=== PATIENT | male | born 1970 | race Caucasian/White ===

== ENCOUNTER 2016-11-12 12:37 | Day surgery (SDC) | payer MEDICARE, OTHER ==
[2016-11-12] VITALS (10 sets, daily range): BP systolic 104–147; BP diastolic 61–92; PULSE 86–104; RESP 14–17; O2SAT 94–100
[~2016-11-12] VITALS: Ht 177.8 cm; Wt 128.0 kg
[~2016-11-12 12:37] MED LIST: COLC0.6T55 PO; CeFAZolin Inj 3 GM in IV Premix 1 EACH IV SCH; LISI10TA PO; METF-495 PO
[2016-11-12] MEDS ORDERED: Lidocaine PF 1% 30 mL Inj ONE (12:38)
[2016-11-12] MEDS ORDERED: Dexamethasone 4 mg/mL Inj ONE (12:38)
[2016-11-12] MEDS ORDERED: Propofol 10,000 mCg/mL 20 mL Inj ONE (12:38)
[2016-11-12] MEDS ORDERED: Phenylephrine/NS 100 mCg/mL 10 mL Syringe IVPUSH ONE (12:38)
[2016-11-12] MEDS ORDERED: Ondansetron 2 mg/mL 2 mL Inj ONE (12:38)
[2016-11-12] MEDS ORDERED: fentaNYL-PF 50 mCg/mL 2 mL Inj ONE (12:38)
[2016-11-12] MEDS: Lactated Ringer's 1,000 ML IV SCH ×2 (12:42→14:23)
--- NOTE | 2016-11-12 14:03 | PCM.HPANE ---
Patient Data Date of Service: Nov 12, 2016 Surgeon Admitting Provider: Attending Provider:Mckay Melgoza MD Primary Care Physician:Nannette Jean Baptiste PA-C Other Provider:Estevan Mccord Anesthesia Reason for Visit Chronic Pilonidal Disease Ht/WT & BMI Height (Feet): 5 Height (Inches): 10 Weight (Kilograms): 128 Body Mass Index 40.00 Allergies Coded Allergies: Bumble Bee (Verified Allergy, Unknown, 11/12/16) Past Anesthesia History Anesthesia History: Denies:: Anesthesia Reactions Diabetes History Hx Diabetes?: Yes Type of Diabetes: Type II Glycemic Control: Oral Medication Current Bedside Blood Glucose: 126 Medications Hypertension Medication: Yes Home Meds Incl Beta Jeanette: No Reported Medications Metformin ER 500 Mg [id number] Mg PO DAILYWD Ref 0 11/10/16 Lisinopril 10 Mg [id number] Mg PO DAILY 30 Days Ref 0 11/10/16 Colchicine 0.6 Mg Tablet0.6 Mg PO BID 11/10/16 Discontinued Reported Medications Hydrocodone/Acetaminophen (Vicodin 5-300 mg Tablet)1 Each Tablet1 Each PO Q4 PRN For Pain Ref 0 12/26/13 [Tiamcinolone 0.1%] No Conflict Check Top Bid Prn To Hands And Feet 12/26/13 History History of ENT Problems?: No Hx of Heart Problems?: Yes Cardiovascular History: Positive for:: Hypertension Other History/Comments States he had a heart attack on EKG, stress test negative per patient Hx of Respiratory Problem?: No Respiratory History: Denies:: Asthma COPD Emphysema Oxygen Administration Use of C-PAP Machine Hx Neurologic Problems?: No Neurological History: Denies:: CVA Multiple Sclerosis Parkinson's Disease Seizures Hx of GI Problems?: Yes Gastrointestinal History: Denies:: Cirrhosis Diverticulitis Gastroesphageal Reflux Heartburn Hepatitis Rectal Bleeding (recurrent pilonidal cyst current admission problem) Hx of Problems?: No Genitourinary History: Denies:: HX of Hemodialysis Kidney Stones Urinary Tract Infection Male Hx: Denies:: Prostate Problems Skin History: Positive for:: History Skin Disorders? (pilonidal cyst current problem) Hx Musculoskeletal Problems?: Yes Musculoskeletal History: Positive for:: Musculoskeletal Trauma (past hx ganglion cyst thumb) Rheumatoid Arthritis (on no meds at this time) Hx of Psycho/Social Problems?: No Hx Surgeries?: Yes (pilonidal cyst, testicular torsion, ganglion cyst thumb) Hx Any Other Health Problems?: Yes Other History: Denies:: Cancer Thyroid Disease Hx Diabetes: YesBedside Blood Glucose: 126 Hx Alcohol Use: NoHx Substance Use: NoHave You Smoked inLast 12 mo: No Stop/Bang S-Snoring: Do You Snore Loudly: Yes T-Tired: feel tired, fatigued: Yes O-Obsered: Observed not breath: No P-Blood Pressure: treated: Yes B- Body Mass Index > 35 kg/m2: Yes A- Age over 50: Yes N- Neck Large Circumference: No G- Gender Male: Yes JT Total Score: 6 JT Risk Assessment: High Risk, =/>3 Yes JT Category 4 OutPt Procedure: Yes Risk Assessment Category Category 1A: Patient has history of documented sleep apnea, and HAS NOT received any narcotic, sedative or anesthesia administration during this stay. Category 1B: Patient has history of documented sleep apnea, and HAS received any narcotic , sedative or anesthesia administration during this stay Category 2: Patient has SUSPECTED Obstructive Sleep Apnea, and HAS received any narcotic , sedative or anesthesia administration during this stay. Category 3: Patient has SUSPECTED Obstructive Sleep Apnea and HAS NOT received narcotic, sedative or anesthesia administration during this stay. Category 4: Outpatient in Procedural Areas with known sleep apnea or who screen positive for High Risk via the STOP/BANG questionnaire. Exam Exam Vital Signs Vital Signs Date Time Temp Pulse Resp B/P Pulse Ox O2 Delivery O2 Flow Rate FiO2 11/12/16 13:26 36 101 16 134/81 95 Room Air General Appearance: Alert, Oriented X3, Cooperative, No Acute Distress HEENT/AIRWAY: MP 2 Lungs: Clear to Auscultation, Normal Air Movement Heart: Exam Unremarkable, Regular Rate/Rhythm, No Murmurs/Rubs/Gallops Meds/Labs/Diagnostics Admission Meds Current Medications Lactated Ringer's (Lr) 1,000 ml @ 120 mls/hr Q8H20M IV Last administered on t 12:42; Start 11/12/16 at 05:00; Stop 11/12/16 at 13:19; Status DC Bedside Blood Glucose: 126 Plan Impression Patient chart reviewed, patient interviewed and anesthestic plan with risks, benefits, and alternatives discussed, and informed consent obtained. NPO Status: MIDNIGHT ASA Physical Status: ASA3 Severe Disease Anesthetic Plan: GA Bene/Risks/Altern/Consents: Yes HP Complete Prior to Induction: Yes Lionel Souza MD Nov 12, 2016 14:03
[2016-11-12] MEDS ORDERED: Bupivacaine 0.5%/EPI 50 mL Inj INFILTRATE ONE (14:23)
[2016-11-12] MEDS ORDERED: Bupivacaine-MPF 0.25%/EPI 30 mL Inj INJ ONE (14:30)
[2016-11-12] MEDS ORDERED: Ondansetron 2 mg/mL 2 mL Inj IVPUSH PRN (15:15)
[2016-11-12] MEDS ORDERED: Lactated Ringer's 500 ML IV PRN (15:15)
[2016-11-12] MEDS ORDERED: HYDROmorphone 1 mg/mL Inj IVPUSH PRN (15:15)
[2016-11-12] MEDS ORDERED: EPHEDrine Sulfate 50 mg/mL Inj IVPUSH PRN (15:15)
[2016-11-12] MEDS ORDERED: Phenylephrine 10,000 mCg/mL Inj IVPUSH PRN (15:15)
[2016-11-12] MEDS ORDERED: Labetalol 5 mg/mL 4 mL Inj IV PRN (15:15)
[2016-11-12] MEDS ORDERED: MetoCLOpramide 5 mg/mL 2 mL Inj IVPUSH PRN (15:15)
[2016-11-12] MEDS ORDERED: hydrALAZINE 20 mg/mL Inj IVPUSH PRN (15:15)
[2016-11-12] MEDS ORDERED: Lactated Ringer's 1,000 ML IV SCH (15:15)
[2016-11-12] MEDS ORDERED: Atropine 0.4 mg/mL Inj IVPUSH PRN (15:15)
[2016-11-12] MEDS ORDERED: Dexamethasone 4 mg/mL Inj IVPUSH PRN (15:15)
--- NOTE | 2016-11-12 16:03 | PCM.ANEP1 ---
Post Anesthesia Phase 1 PACU Phase 1 Assessment Date of Service: Nov 12, 2016 Vital Signs 36.4 133/70 88 8 97% FM Anesthetic Administered: GA Level of Alertness: Sleeping, hard to arouse PACHECO's with Equal Strength: Yes Pain: No Nausea or Vomiting: No Airway Device: Nasal Airway Oxygen Delivery: Simple Mask Lungs: Clear to Auscultation, Normal Air Movement Lionel Souza MD Nov 12, 2016 16:03
[2016-11-12] MEDS: fentaNYL-PF 50 mCg/mL 2 mL Inj IVPUSH PRN ×2 (16:24→16:30)
[2016-11-12] MEDS: oxyCODONE-Acetamin 5-325 mg Tablet PO PRN ×2 (16:54→17:41)
--- NOTE | 2016-11-12 17:27 | OP ---
[address] [address] OPERATIVE REPORT PATIENT: SURJIT BOSE : 1970 MR#: [id number] ADMIT: 11/12/2016 JOB ID: [id number] DATE OF SURGERY: 11/12/2016 ANESTHESIA: General. PREOPERATIVE DIAGNOSIS(ES): Chronic pilonidal disease. POSTOPERATIVE DIAGNOSIS(ES): Chronic pilonidal disease. OPERATIVE PROCEDURE: Excision of pilonidal disease with cleft lift procedure (30 square cm of tissue transfer). SURGEON: Mckay Melgoza MD ESE TEACHER: 1. Elgin Cleveland PA-C (the legal executive assistant was required for the safe and timely completion of the case). 2. TRINITY Gomez. COMPLICATIONS: None. ESTIMATED BLOOD LOSS: Minimal. CONDITION: Satisfactory. SPECIMEN: None. FINDINGS: The patient had predominantly left-sided disease. This was excised with approximately 30 square cm of tissue transferred to create a cleft lift procedure. INDICATION AND SIGNIFICANT HISTORY: The patient is a 45-year-old man who has been struggling with recurrent pilonidal abscesses for at least five years. He has had these drained on a number of occasions. He was eventually referred to me and after consultation given the chronicity of disease we agreed to proceed with the cleft lift procedure. OPERATIVE TECHNIQUE: The patient was taken to the operating room and general anesthesia was administered. Preoperative antibiotics were administered. He was then placed in the prone position. The buttocks were taped to expose the intergluteal cleft area. The area was thoroughly shaved. The buttocks and cleft were then prepped and draped in standard surgical fashion. A procedural pause was performed. I began with injecting local without epinephrine into the subcutaneous tissue. I had preoperatively marked the safety lines. I then began by incising the skin just medial to the disease, down encompassing the midline pits. I then raised flaps out to the previously marked line of safety. The buttock taping was then released. I ensured that the flap would reach over to fill the proposed defect. I then excised all the diseased skin on the left side. The chronic abscess cavity was unroofed and cleaned out. I incised all the scar tissue to create little cubed segments. I then closed the defect in three layers using three 3-0 PDS suture. A white vessel loop was incorporated into the closure to act as a drain. The skin was then closed using a 3-0 Monocryl in a subcuticular fashion. Steri-Strips were applied. The entire procedure was well tolerated, without complication.
--- NOTE | 2016-11-13 10:42 | PCM.ANEP2 ---
Post Anesthesia Evaluation ASA/CMS Post Anesthesia Date of Service: Nov 12, 2016 VS in Patient's Normal Range?: Yes Resp Stable; Airway Patent?: Yes CV Function & Hydration Stable: Yes Mental Status Recovered?: Yes Pain control Satisfactory?: Yes N/V Control Satisfactory?: Yes Lionel Souza MD Nov 13, 2016 10:42
== END 2016-11-12 23:59 | disposition home or self-care (01) ==
LOC: SAS 12:37
PROVIDERS: ATTEND General Practice
DX: L05.01 Pilonidal cyst with abscess (principal); L98.8 Other specified disorders of the skin and subcutaneous tissue; I10 Essential (primary) hypertension; M06.9 Rheumatoid arthritis, unspecified; E11.9 Type 2 diabetes mellitus without complications; D69.6 Thrombocytopenia, unspecified; Z79.84 Long term (current) use of oral hypoglycemic drugs
CPT/HCPCS: 11772; 14001; J0690; J1100; J2250; J2370; J2405; J3010; J7120